=== PATIENT | male | born 1990 | race Caucasian/White ===

== ENCOUNTER 2019-10-07 20:11 | Emergency (ER) | payer SELFPAY ==
[~2019-10-07] VITALS: Ht 180.3 cm; Wt 93.2 kg
[2019-10-07 20:21] VITALS: Ht 180.3 cm; Wt 93.2 kg
[2019-10-07] MEDS ORDERED: ZPAK PO (21:03)
[2019-10-07] MEDS ORDERED: VOLTAREN75 MG PO (21:03)
[2019-10-07 21:16] VITALS: BP 128/79
== END 2019-10-07 21:16 | disposition home or self-care (01) ==
LOC: D.ER 20:11
DX: H66.91 Otitis media, unspecified, right ear (principal); Z72.0 Tobacco use